=== PATIENT | male | born 1960 | race Caucasian/White ===

== ENCOUNTER → 2017-02-11 | Outpatient (CLI) | payer BC ==
[~2017-02-11] MED LIST: LEVO125T72 PO
[2017-02-11 11:31] LABS: PROSTATE SPECIFIC ANTIGEN 3.94 ng/ml (0.000-4.000); THYROID STIMULATING HORMONE 0.438 uIu/ml (0.300-4.500)
[2017-02-11 13:20] LABS: LYME DISEASE AB IGG NEG (NEG); LYME DISEASE AB IGM NEG (NEG)
--- NOTE | 2017-02-18 12:25 | CODING QUERY MEDICAL NECESSITY ---
SUPPORTING DIAGNOSIS NEEDED A supporting diagnosis is required for the test/procedure performed on this patient in order for us to be reimbursed by the patient's insurance. Please provide a supporting diagnosis for the following test/procedure listed below next to the test name along with your signature. *If there is no additional diagnosis for this patient that would support the following test/procedure please document that below next to the test/procedure. Test(s)/Procedure(s) that require a supporting diagnosis: * PSA DIAGNOSIS: Provider Signature: Date: Thank you Molly Mccain [employer] Once completed, please kindly fax back to [phone] For questions please call [phone]
--- NOTE | 2017-02-18 13:17 | CODING QUERY MEDICAL NECESSITY ---
CQSUPPORTING DIAGNOSIS NEEDED A supporting diagnosis is required for the test/procedure performed on this patient in order for us to be reimbursed by the patient's insurance. Please provide a supporting diagnosis for the following test/procedure listed below next to the test name along with your signature. *If there is no additional diagnosis for this patient that would support the following test/procedure please document that below next to the test/procedure. Test(s)/Procedure(s) that require a supporting diagnosis: DOS 02/11/17 PROSTATE SPECIFIC Provider Signature: Date: Thank you Betty Veliz [employer] Once completed, please kindly fax back to [phone] For questions please call [phone]
== END | disposition home or self-care (01) ==
LOC: C.LABBC 07:33
PROVIDERS: ATTEND Physician Assistant
DX: Z00.00 Encounter for general adult medical examination without abnormal findings (principal); E03.9 Hypothyroidism, unspecified; R53.83 Other fatigue

== ENCOUNTER → 2017-05-07 | Outpatient (CLI) | payer BC | END | disposition home or self-care (01) | LOC: C.LABBC 11:59 | PROVIDERS: ATTEND Physician Assistant | DX: Z00.00 Encounter for general adult medical examination without abnormal findings (principal); E03.9 Hypothyroidism, unspecified ==

== ENCOUNTER → 2017-06-17 | Outpatient (CLI) | payer BC ==
[2017-06-17 13:56] LABS: BASO % 0.6 %; BASO ABS # 0.05 K/uL (0-0.2); COMPLETE YES; EOS % 2.4 %; HEMATOCRIT 47.3 % (42-52); IG% 0.1 %; LYMPH % 22.3 %; LYMPH ABS # 1.76 K/uL (1.2-3.4); MEAN CELL VOLUME 89.2 fL (80-100); MEAN CORPUSCULAR HEMOGLOBIN 30.6 pg (25-34); MEAN CORPUSCULAR HGB CONC 34.2 g/dl (32-36); MEAN PLATELET VOLUME 10.4 fL (7.4-10.4); MONO % 10.3 %; NEUT % 64.3 %; PLATELET COUNT 195 K/uL (130-400)
[2017-06-17 14:14] LABS: ALT/SGPT 52 U/L (12-78); AST/SGOT 20 U/L (15-37); BLOOD UREA NITROGEN 19 mg/dl (7-18); BUN/CREATININE RATIO 19.3 (10-20); CALCIUM 9.3 mg/dl (8.5-10.1); CARBON DIOXIDE 28 mmol/L (21-32); CHLORIDE 106 mmol/L (98-107); CREATININE 0.97 mg/dl (0.60-1.40); GLUCOSE 90 mg/dl (70-99); POTASSIUM 4.6 mmol/L (3.5-5.1); SODIUM 140 mmol/L (136-145)
[2017-06-17 14:16] LABS: ALKALINE PHOSPHATASE 49 U/L (45-117)
== END | disposition home or self-care (01) ==
LOC: C.LABBC 11:12
PROVIDERS: ATTEND Physician Assistant
DX: R53.83 Other fatigue (principal)

== ENCOUNTER → 2017-07-21 | Outpatient (CLI) | payer BC ==
--- NOTE | 2017-07-24 11:23 | POLYSOMNOGRAPH REPORT ---
CLINICAL DATA: A 57-year-old male with BMI of 25.2 referred by Molly Warner and Dr. De Guzman for evaluation of fatigue, snoring, and unrefreshing sleep. On the evening of 07/21/2017, a home sleep apnea test was performed using a Smava type 3 monitor. RECORDING RESULTS: Total recording time was 10 hours. The patient monitoring time and estimated sleep time was 8.7 hours. RESPIRATORY DATA: There was no evidence of clinically significant sleep apnea seen. The SULY was 1.6. There were 2 central apneic episodes and 12 hypopneic episodes. The longest respiratory event was 44 seconds. OXIMETRY DATA: No hypoxemia was seen. The oxygen trace was 89%. Mean saturation 94%. HEART RATE DATA: Heart rates ranged from 40-52 beats per minute. SNORING DATA: Snoring was recorded throughout the night. IMPRESSION: No evidence of clinically significant sleep apnea/hypopnea or nocturnal hypoxemia on this home sleep apnea test. RECOMMENDATIONS: The patient should continue to practice good sleep hygiene. JULIA
== END | disposition home or self-care (01) ==
LOC: C.NEUR 08:58
PROVIDERS: ATTEND Physician Assistant
DX: R53.83 Other fatigue (principal); R06.83 Snoring

== ENCOUNTER → 2018-04-27 | Outpatient (CLI) | payer OTHER | END | disposition home or self-care (01) | LOC: C.LABBC 12:06 | PROVIDERS: ATTEND Family Medicine Adult Medicine | DX: E03.9 Hypothyroidism, unspecified (principal) ==